=== PATIENT | male | born 1965 | race Caucasian/White ===

== ENCOUNTER → 2016-12-11 | Outpatient (CLI) | payer BC ==
[~2016-12-11] MED LIST: EXCEDRIN EXTRA1 EAC3 PO; HYDROCODON-ACE1 EA14 PO; LISINOPRIL PO
--- NOTE | ~2016-12-11 | EKG ---
PATIENT: MARILYN MACIEL UNIT #: [id number] Ventricular Rate: 79 BPM Atrial Rate: 79 BPM P-R Interval: 128 ms QRS Duration: 88 ms Q-T Interval: 382 ms QTC Calculation(Bezet): 438 ms P Jewett: 70 degrees Calculated R Jewett: 64 degrees Calculated T Jewett: 59 degrees Diagnosis Line: Normal sinus rhythm Diagnosis Line: Normal ECG Diagnosis Line: No previous ECGs available Diagnosis Line: Confirmed by JASWANT PENN MD ([id number]) on 12/12/2016 Diagnosis Line: 7:15:37 PM INTERPRETING MD: FILI NICHOLS
[2016-12-11 13:56] LABS: HEMATOCRIT 41.4 % (38.0-50.0); MEAN CELL VOLUME 85.1 FL (83-96); MEAN CORPUSCULAR HEMOGLOBIN 28.7 PG (28-34); MEAN CORPUSCULAR HGB CONC 33.8 g/dL (30-36); MEAN PLATELET VOLUME 8.5 FL (6.5-11.5); RED BLOOD COUNT 4.86 X10e (3.90-5.60); RED CELL DISTRIBUTION WIDTH 13.3 % (11.0-15.5); WHITE BLOOD COUNT 11.2 X10e3 (4.0-10.5)
[2016-12-11 15:00] LABS: BUN/CREATININE RATIO 12.5; CALCIUM SERUM 9.3 mg/dL (8.4-10.2); CREATININE SERUM 0.8 mg/dL (0.6-1.4); GLOM FILT RATE Estimated 104.2 mL/min (>60); POTASSIUM 3.1 mmol/L (3.5-5.1)
== END | disposition home or self-care (01) ==
LOC: CAMB 14:00
PROVIDERS: Specialist
DX: Z01.818 Encounter for other preprocedural examination (principal); K40.90 Unilateral inguinal hernia, without obstruction or gangrene, not specified as recurrent
CPT/HCPCS: 36415; 80048; 85027; 93005

== ENCOUNTER → 2016-12-18 | Day surgery (SDC) | payer BC ==
--- NOTE | ~2016-12-18 | OR ---
Unit #: [id number] #: [id number] Patient: MARILYN MACIEL [id number] [facility] [address] [facility] [place], [place] [address] [id number] MR#: [id number] NAME: MARILYN MACIEL ROOM: Date of Procedure: 12/18/2016 Admission Date: 12/18/2016 Surgeon: Chao Desouza M.D. : 1965 Attending Physician: Chao Desouza M.D. OPERATIVE REPORT PREOPERATIVE DIAGNOSIS Left inguinal hernia. POSTOPERATIVE DIAGNOSIS Indirect and direct left inguinal hernia. PROCEDURE PERFORMED Open repair with PerFix plug mesh. ANESTHESIA General endotracheal anesthesia. ESTIMATED BLOOD LOSS Less than 10 mL. INDICATIONS FOR PROCEDURE Mr. Maciel is a 51-year-old gentleman, who does strenuous activity for living and presented with a painful bulge in the left inguinal canal. On examination, he had a reducible inguinal hernia. DESCRIPTION OF PROCEDURE The patient was admitted to [facility], positively identified, and transported to the operating room, and after induction of general endotracheal anesthesia, his abdominal wall hair was clipped, and he was prepped and draped in usual sterile fashion. He received antibiotics per SCIP protocol. A transverse incision over the inguinal canal was made, dissected down through the soft tissue exposing the external oblique aponeurosis. The aponeurosis was opened in the direction of its fibers to include the external ring. The ilioinguinal nerve was identified and preserved. The cord structures were elevated from the floor of the inguinal canal and encircled with a Maciel drain. On initial examination, he had a well-defined and large hernia sac coming from the floor of the inguinal canal medial to the epigastric vessels consistent with a direct inguinal hernia. Once I opened the cremasteric muscles and evaluated the spermatic cord, however, there was a smaller indirect hernia sac with no contents. The indirect hernia sac was dissected free from the cord structures and reduced in the internal ring back in the peritoneal cavity. A small PerFix plug was placed in the internal ring to maintain reduction and to prevent recurrence. The plug was secured in position with an 0 Ethibond interrupted suture. The larger direct hernia sac was reduced back in the peritoneal cavity, and then a Bassini-type repair from the conjoint tendon to the shelving edge of the Unit #: [id number] #: [id number] Patient: MARILYN MACIEL inguinal ligament was performed with multiple 0 Ethibond interrupted sutures. The onlay keyhole mesh was then secured to the pubic tubercle medially and stretched across the inguinal canal. The tails were wrapped around the internal ring and secured to the musculofascial tissues superior and lateral to the internal ring. I then secured the limbs of the mesh to the shelving edge of the inguinal ligament and the rectus sheath. Cord structures were placed back in the anatomic position. Field block with 0.5% Marcaine with epinephrine was performed. Soft tissue was reapproximated with 3-0 Vicryl running suture, and the skin was closed with 4-0 Monocryl running subcuticular closure and Dermabond skin adhesive. Sponges and needle counts were correct x3. The patient tolerated the procedure well and was transported to the recovery in stable condition. Preoperatively, I had gone over the instructions with the patient. At the end of the operation, his family had not returned to pick him up. I went over the instructions with the nursing staff, and they will go over them with the family when they show up. The patient is in pain management and takes hydrocodone daily. I have written him a prescription for hydrocodone and told him to authorize its use with his pain management physician. Dictated by... Darvin Garcia/[place] TD: 12/19/2016 06:36 JOB #: [id number] OPERATIVE REPORT Page 1 of 1 X Chao Desouza MD X PROCEDURE OPERATIVE NOTE
== END | disposition home or self-care (01) ==
LOC: CSUR 06:56
DX: K40.90 Unilateral inguinal hernia, without obstruction or gangrene, not specified as recurrent (principal); I10 Essential (primary) hypertension; M06.9 Rheumatoid arthritis, unspecified; G43.909 Migraine, unspecified, not intractable, without status migrainosus; M19.90 Unspecified osteoarthritis, unspecified site; Z79.899 Other long term (current) drug therapy; Z98.890 Other specified postprocedural states
CPT/HCPCS: 84132; C1781; J0690; J1100; J1170; J1885; J2250; J2405; J3010